=== PATIENT | male | born 1960 | race Caucasian/White ===

== ENCOUNTER 2017-11-10 19:16 | Inpatient (IN) ==
[2017-11-10] MEDS ORDERED: ACETAMINOPHEN 500 MG TABLET ONE (22:00)
[2017-11-10] MEDS ORDERED: ACETAMINOPHEN 500 MG TABLET PO STA (22:05)
[2017-11-10] MEDS ORDERED: SODIUM CHLORIDE 0.9% 1,000 ML IV STA (22:49)
[2017-11-10] MEDS ORDERED: ALBUTEROL/IPRATROPIUM 3 ML NEB RESP TX STA (22:49)
[2017-11-10] MEDS ORDERED: cefTRIAXone 1,000 MG in SODIUM CHLORIDE 0.9% 100 ML IV STA (22:49)
[2017-11-10] MEDS ORDERED: cefTRIAXone 1,000 MG VIAL ONE (22:56)
[2017-11-10 23:12] LABS: Albumin 3.1 G/DL (3.4-5.0); Bilirubin,Total 0.4 MG/DL (0.2-1.0); Calcium 8.5 MG/DL (8.5-10.1); Osmolality,Calculated 261.8 MOS/KG (273-304); Potassium 4.2 MMOL/L (3.5-5.1); Total Protein 6.5 G/DL (6.4-8.3)
[2017-11-10 23:28] LABS: Lactic Acid 0.5 MMOL/L (0.4-2.0)
[2017-11-10 23:40] LABS: Basophils # 0.1 10*3/uL (0.0-0.2); Basophils % 0.4 % (0.0-0.8); Eosinophils # 0.1 10*3/uL (0.0-0.87); Eosinophils % 0.6 % (0.00-10.9); Hematocrit 33.9 VOL% (42.0-52.0); Hemoglobin 12.5 GM/DL (14.0-18.0); Immature Granulocytes % 0.4 %; Immature Granulocytes Absolute 0.06 #; Lymphocytes # 1.5 10*3/uL (1.4-4.0); Lymphocytes % 10.3 % (21.2-54.2); Mean Corpuscular HGB Conc 36.9 GM/DL (32-36); Mean Corpuscular Hemoglobin 33 PG (27-34); Mean Corpuscular Volume 89.2 FL (87-102); Mean Platelet Volume 9.7 FL (9.6-12.0); Monocytes # 1.3 10*3/uL (0.11-0.8); Monocytes % 9.1 % (1.7-12.7); Neutrophils # 11.1 10*3/uL (1.4-7.4); Neutrophils % 79.2 % (38.7-73.9); Platelet Count 308 T/CUMM (130-400); Red Cell Distribution Width 11.6 % (9.3-17.3)
[2017-11-11 00:10] LABS: Sedimentation Rate-Westergren 35 MM/HR (0-20)
[2017-11-11 00:36] LABS: Apearance,Urine CLEAR (Clear); Bilirubin,Urine Negative (Negative); Blood, Urine Negative (Negative); Glucose,Urine (UA) Negative (Negative); Ketones,Urine Negative (Negative); Nitrite,Urine Negative (Negative); Protein,Urine Negative; RBC,Urine <1 /HPF (0-4); Urine Color Yellow (Yellow); Urine Specific Gravity 1.013 (1.001-1.035); Urine Urobilinogen < 2.0 EU/DL (0.2-1.0); WBC,Urine <1 /HPF (0-6)
[2017-11-11] MEDS ORDERED: ONDANSETRON 4 MG/2 ML VIAL IV PRN (03:17)
[2017-11-11] MEDS ORDERED: ACETAMINOPHEN 325 MG TABLET PO PRN (03:17)
[2017-11-11] MEDS ORDERED: CETIRIZINE 10 MG TABLET PO STA (03:21)
[2017-11-11] MEDS ORDERED: DOXYCYCLINE HYCLATE INJ 100 MG in SODIUM CHLORIDE 0.9% 100 ML IV SCH (04:00)
[2017-11-11] MEDS: SODIUM CHLORIDE 0.9% 1,000 ML IV SCH ×3 (04:20→21:45)
[2017-11-11 05:55] LABS: Hepatitis A Ab IgM Result Negative (Negative); Hepatitis B Core IgM Quant 0.16 Index; Hepatitis B Core IgM Result Negative (Negative); Hepatitis B Surface Ag Quant < 0.10 Index; Hepatitis B Surface Ag Result Negative (Negative); Hepatitis C Virus Ab Quant 0.06 Index; Hepatitis C Virus Ab Result Negative (Negative)
[2017-11-11] MEDS: ALBUTEROL/IPRATROPIUM 3 ML NEB RESP TX SCH ×3 (07:35→19:18)
[2017-11-11 07:39] LABS: Basophils # 0.1 10*3/uL (0.0-0.2); Basophils % 0.4 % (0.0-0.8); Eosinophils # 0.1 10*3/uL (0.0-0.87); Eosinophils % 0.7 % (0.00-10.9); Hematocrit 35.8 VOL% (42.0-52.0); Hemoglobin 12.8 GM/DL (14.0-18.0); Immature Granulocytes % 0.5 %; Immature Granulocytes Absolute 0.06 #; Lymphocytes # 1.2 10*3/uL (1.4-4.0); Lymphocytes % 10.7 % (21.2-54.2); Mean Corpuscular HGB Conc 35.8 GM/DL (32-36); Mean Corpuscular Hemoglobin 32 PG (27-34); Mean Corpuscular Volume 90.6 FL (87-102); Mean Platelet Volume 9.1 FL (9.6-12.0); Monocytes # 1.2 10*3/uL (0.11-0.8); Monocytes % 10.2 % (1.7-12.7); Neutrophils # 8.8 10*3/uL (1.4-7.4); Neutrophils % 77.5 % (38.7-73.9); Platelet Count 290 T/CUMM (130-400); Red Blood Count 3.95 MC/CUMM (3.8-5.5); Red Cell Distribution Width 11.5 % (9.3-17.3); White Blood Count 11.4 T/CUMM (4-12)
[2017-11-11 08:17] LABS: Albumin 3.1 G/DL (3.4-5.0); Bilirubin,Total 0.9 MG/DL (0.2-1.0); Calcium 8.3 MG/DL (8.5-10.1); Osmolality,Calculated 268.1 MOS/KG (273-304); Potassium 4.3 MMOL/L (3.5-5.1); Total Protein 6.3 G/DL (6.4-8.3)
[2017-11-11] MEDS: PANTOPRAZOLE 40 MG TABLET PO SCH (08:26)
[2017-11-11] MEDS: CETIRIZINE 10 MG TABLET PO SCH (08:26)
[2017-11-11 10:30] LABS: HIV Antigen/Antibody Result SEE COMMENTS (Nonreactive)
[2017-11-11] MEDS: CLINDAMYCIN INJ 900 MG in PREMIX 1 EACH IV SCH ×2 (11:20→18:36)
[2017-11-11] MEDS: cefTRIAXone 2,000 MG in SYRINGE 1 EACH IV SCH (14:11)
[2017-11-11] MEDS ORDERED: TUBERCULIN SKIN TEST 0.1 ML SYRINGE INTRADERM ONE (17:58)
[2017-11-11] MEDS: DOXYCYCLINE HYCLATE 100 MG CAPSULE PO SCH (20:45)
[2017-11-12] MEDS: ALBUTEROL/IPRATROPIUM 3 ML NEB RESP TX SCH ×4 (00:34→19:38)
[2017-11-12] MEDS: CLINDAMYCIN INJ 900 MG in PREMIX 1 EACH IV SCH ×4 (01:32→17:34)
[2017-11-12] MEDS: SODIUM CHLORIDE 0.9% 1,000 ML IV SCH ×3 (04:18→21:57)
[2017-11-12] MEDS: DOXYCYCLINE HYCLATE 100 MG CAPSULE PO SCH ×2 (08:34→21:56)
[2017-11-12] MEDS: PANTOPRAZOLE 40 MG TABLET PO SCH (08:35)
[2017-11-12] MEDS: CETIRIZINE 10 MG TABLET PO SCH (08:35)
[2017-11-12 11:06] LABS: PT Patient Result 10.7 SECS; Partial Thromboplastin Time 32.9 SECS (0-40)
[2017-11-12] MEDS: cefTRIAXone 2,000 MG in SYRINGE 1 EACH IV SCH (13:47)
[2017-11-13] MEDS: ALBUTEROL/IPRATROPIUM 3 ML NEB RESP TX SCH ×4 (00:20→19:16)
[2017-11-13] MEDS: CLINDAMYCIN INJ 900 MG in PREMIX 1 EACH IV SCH ×3 (01:03→19:26)
[2017-11-13] MEDS: SODIUM CHLORIDE 0.9% 1,000 ML IV SCH ×2 (07:42→23:30)
[2017-11-13] MEDS: CETIRIZINE 10 MG TABLET PO SCH (08:29)
[2017-11-13] MEDS: PANTOPRAZOLE 40 MG TABLET PO SCH (08:29)
[2017-11-13] MEDS: DOXYCYCLINE HYCLATE 100 MG CAPSULE PO SCH ×2 (08:29→20:36)
[2017-11-13] MEDS: cefTRIAXone 2,000 MG in SYRINGE 1 EACH IV SCH (13:48)
[2017-11-14] MEDS: ALBUTEROL/IPRATROPIUM 3 ML NEB RESP TX SCH ×4 (00:59→19:38)
[2017-11-14] MEDS: CLINDAMYCIN INJ 900 MG in PREMIX 1 EACH IV SCH ×3 (01:10→17:03)
[2017-11-14 05:31] LABS: Basophils % 0.7 % (0.0-0.8); Eosinophils # 0.2 10*3/uL (0.0-0.87); Eosinophils % 2.7 % (0.00-10.9); Hematocrit 30.5 VOL% (42.0-52.0); Immature Granulocytes % 0.5 %; Immature Granulocytes Absolute 0.03 #; Lymphocytes # 1.3 10*3/uL (1.4-4.0); Lymphocytes % 21.9 % (21.2-54.2); Mean Corpuscular HGB Conc 36.1 GM/DL (32-36); Mean Corpuscular Hemoglobin 33 PG (27-34); Mean Corpuscular Volume 90.2 FL (87-102); Mean Platelet Volume 9.2 FL (9.6-12.0); Monocytes # 0.6 10*3/uL (0.11-0.8); Monocytes % 10.2 % (1.7-12.7); Neutrophils # 3.8 10*3/uL (1.4-7.4); Platelet Count 313 T/CUMM (130-400); Red Blood Count 3.38 MC/CUMM (3.8-5.5); Red Cell Distribution Width 11.7 % (9.3-17.3); White Blood Count 5.9 T/CUMM (4-12)
[2017-11-14 05:53] LABS: Albumin 2.6 G/DL (3.4-5.0); Bilirubin,Total 0.6 MG/DL (0.2-1.0); Calcium 7.8 MG/DL (8.5-10.1); Osmolality,Calculated 270.8 MOS/KG (273-304); Potassium 4.4 MMOL/L (3.5-5.1); Total Protein 5.6 G/DL (6.4-8.3)
[2017-11-14] MEDS ORDERED: MEPERIDINE 50 MG/1 ML VIAL IM ONE (07:00)
[2017-11-14] MEDS ORDERED: PROMETHAZINE 25 MG/1 ML VIAL IM ONE (07:00)
[2017-11-14] MEDS ORDERED: MIDAZOLAM 2 MG/2 ML VIAL IV ONE (07:30)
[2017-11-14] MEDS ORDERED: LIDOCAINE 2% 20 ML VIAL RESP TX ONE (07:30)
[2017-11-14] MEDS ORDERED: LIDOCAINE 1% 20 ML VIAL MISC INJ ONE (07:30)
[2017-11-14] MEDS ORDERED: MIDAZOLAM 2 MG/2 ML VIAL ONE (08:50)
[2017-11-14] MEDS: CETIRIZINE 10 MG TABLET PO SCH (10:23)
[2017-11-14] MEDS: DOXYCYCLINE HYCLATE 100 MG CAPSULE PO SCH ×2 (10:23→21:14)
[2017-11-14] MEDS: PANTOPRAZOLE 40 MG TABLET PO SCH (10:23)
[2017-11-14] MEDS: SODIUM CHLORIDE 0.9% 1,000 ML IV SCH ×4 (10:25→21:13)
[2017-11-14] MEDS: cefTRIAXone 2,000 MG in SYRINGE 1 EACH IV SCH (14:13)
[2017-11-14 15:46] LABS: Ehrlichia Chaffeensis (HME)IgG <1:64 titer (<1:64)
[2017-11-15] MEDS: ALBUTEROL/IPRATROPIUM 3 ML NEB RESP TX SCH ×4 (00:19→20:31)
[2017-11-15] MEDS: CLINDAMYCIN INJ 900 MG in PREMIX 1 EACH IV SCH ×3 (01:48→16:17)
[2017-11-15] MEDS: SODIUM CHLORIDE 0.9% 1,000 ML IV SCH ×2 (05:41→05:42)
[2017-11-15] MEDS: CETIRIZINE 10 MG TABLET PO SCH (08:48)
[2017-11-15] MEDS: PANTOPRAZOLE 40 MG TABLET PO SCH (08:48)
[2017-11-15] MEDS: DOXYCYCLINE HYCLATE 100 MG CAPSULE PO SCH ×2 (08:48→20:28)
[2017-11-15] MEDS: cefTRIAXone 2,000 MG in SYRINGE 1 EACH IV SCH (10:54)
[2017-11-15 22:16] LABS: QuantiFERON-Tb Gold Pl Negative (Negative); TB1 Ag minus Nil Result -0.02 IU/mL; TB2 Ag Minus Result -0.02 IU/mL
[2017-11-16] MEDS: CLINDAMYCIN INJ 900 MG in PREMIX 1 EACH IV SCH (00:14)
[2017-11-16] MEDS: ALBUTEROL/IPRATROPIUM 3 ML NEB RESP TX SCH ×2 (01:02→07:19)
[2017-11-16 07:53] VITALS: BP 141/88
[2017-11-16] MEDS ORDERED: AMOXICILLIN/CLAV 500 MG TABLET PO SCH (09:00)
[2017-11-16] MEDS: CETIRIZINE 10 MG TABLET PO SCH (09:51)
[2017-11-16] MEDS: PANTOPRAZOLE 40 MG TABLET PO SCH (09:51)
[2017-11-16 15:51] LABS: Q Fever IgM Phase I Screen NEGATIVE (NEGATIVE); Q Fever IgM Phase II Screen NEGATIVE (NEGATIVE)
== END 2017-11-16 10:45 | disposition home or self-care (01) | DRG 168 ==
LOC: N.ED 19:16 → SUATTDRO 11-11 02:35 → N.EDINP 11-11 02:35 → N.2E 11-11 02:53
PROVIDERS: ADMIT Internal Medicine Infectious Disease; ATTEND Internal Medicine
PROC: BRONCHB (2017-11-14 08:20)